=== PATIENT | female | born 1980 | race Hispanic/Latino ===

== ENCOUNTER 2019-01-15 19:30 | Outpatient (CLI) | payer BC | END 2019-01-15 19:31 | disposition home or self-care (01) | LOC: SLEEPLAB 19:30 | PROVIDERS: ATTEND Family Medicine | DX: G47.33 Obstructive sleep apnea (adult) (pediatric) (principal); R53.83 Other fatigue; R51 Headache; F41.9 Anxiety disorder, unspecified; G47.00 Insomnia, unspecified; R06.83 Snoring; G47.10 Hypersomnia, unspecified; G47.12 Idiopathic hypersomnia without long sleep time | CPT/HCPCS: 95810 ==